=== PATIENT | male | born 2000 | race Caucasian/White ===

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

== ENCOUNTER 2022-11-14 05:05 | Emergency (ER) | payer OTHER ==
[~2022-11-14] VITALS: Ht 185.4 cm; Wt 113.4 kg
[2022-11-14 05:10] VITALS: BP 124/79; PULSE 71; RESP 17; TEMP 97.7; O2SAT 97
--- NOTE | 2022-11-14 05:10 | NUR ---
TO BED AMBULATORY
--- NOTE | 2022-11-14 05:15 | NUR ---
Patient being evaluated by physician at bedside.
[2022-11-14] MEDS ORDERED: HYDR-1093 PO (05:19)
[2022-11-14 05:21] VITALS: BP 124/79; PULSE 71; RESP 17; TEMP 97.7; O2SAT 97
--- NOTE | 2022-11-14 05:30 | NUR ---
Patient discharged. Written and verbal after care instructions given and explained. Patient alert, oriented and verbalized understanding of instructions. Ambulatory with steady gait. All questions addressed prior to discharge. ID band removed. Patient advised to follow up with PMD. Rx of Hydroxyzine given. Patient educated on indication of medication including possible reaction and side effects. Opportunity to ask questions provided and answered.
== END 2022-11-14 05:30 | disposition home or self-care (01) ==
LOC: MED 05:05
DX: R21 Rash and other nonspecific skin eruption (principal); J45.909 Unspecified asthma, uncomplicated; Z79.899 Other long term (current) drug therapy
CPT/HCPCS: 99283

== ENCOUNTER 2022-12-24 04:45 | Emergency (ER) | payer OTHER ==
[~2022-12-24] VITALS: Ht 185.4 cm; Wt 113.4 kg
[~2022-12-24 04:45] MED LIST changes: +HYDR-1093 PO
[2022-12-24 04:50] VITALS: BP 140/90; PULSE 88; RESP 16; TEMP 98.3; O2SAT 97
== END 2022-12-24 07:40 | disposition home or self-care (01) ==
LOC: MED 04:45
DX: S69.81XA Other specified injuries of right wrist, hand and finger(s), initial encounter (principal); J45.909 Unspecified asthma, uncomplicated; Z79.899 Other long term (current) drug therapy; X58.XXXA Exposure to other specified factors, initial encounter; Y93.89 Activity, other specified; Y92.89 Other specified places as the place of occurrence of the external cause; Y99.8 Other external cause status
CPT/HCPCS: 73140; 99283

== ENCOUNTER 2023-10-08 22:20 | Emergency (ER) | payer OTHER ==
[~2023-10-08] VITALS: Ht 185.4 cm; Wt 117.9 kg
[~2023-10-08 22:20] MED LIST changes: +NAPR-337 PO; -NAPR-54 PO
[2023-10-08 22:35] VITALS: BP 140/62; PULSE 90; RESP 17; TEMP 97.8; O2SAT 98
[2023-10-09 01:10] VITALS: BP 140/62; PULSE 90; RESP 17; TEMP 97.8; O2SAT 98
== END 2023-10-09 01:10 | disposition home or self-care (01) ==
LOC: MED 22:20
DX: S61.212A Laceration without foreign body of right middle finger without damage to nail, initial encounter (principal); J45.909 Unspecified asthma, uncomplicated; Z79.1 Long term (current) use of non-steroidal anti-inflammatories (NSAID); Z79.899 Other long term (current) drug therapy; X58.XXXA Exposure to other specified factors, initial encounter; Y93.89 Activity, other specified; Y92.89 Other specified places as the place of occurrence of the external cause; Y99.8 Other external cause status
CPT/HCPCS: 90471; 90715; 99283